=== PATIENT | female | born 1940 | race African-American/Black ===

== ENCOUNTER 2017-05-19 14:11 | Outpatient (RCR) | payer OTHER | END 2017-05-20 | disposition home or self-care (01) | LOC: EDBD → PTY 14:11 → MERGE 14:11 | PROVIDERS: ATTEND Internal Medicine | DX: M54.41 Lumbago with sciatica, right side (principal); M54.42 Lumbago with sciatica, left side; G89.29 Other chronic pain | CPT/HCPCS: 97110; 97140; 97162; G0283 ==

== ENCOUNTER 2017-06-09 13:00 | Outpatient (RCR) | payer OTHER | END 2017-06-20 | disposition home or self-care (01) | LOC: EDBD → MERGE 13:00 → PTY 13:00 | PROVIDERS: ATTEND Internal Medicine | DX: M54.41 Lumbago with sciatica, right side (principal); M54.42 Lumbago with sciatica, left side; G89.29 Other chronic pain | CPT/HCPCS: 97110; 97140; G0283 ==

== ENCOUNTER 2017-06-29 14:30 | Outpatient (RCR) | payer OTHER | END 2017-07-21 | disposition home or self-care (01) | LOC: EDBD → PTY 14:30 | PROVIDERS: ATTEND Internal Medicine | DX: M54.41 Lumbago with sciatica, right side (principal); M54.42 Lumbago with sciatica, left side; G89.29 Other chronic pain | CPT/HCPCS: 97110; 97140; G0283 ==

== ENCOUNTER 2017-09-16 10:30 | Outpatient (RCR) | payer OTHER | END 2017-09-18 | disposition home or self-care (01) | LOC: PTY 10:30 | PROVIDERS: ATTEND Internal Medicine | DX: M76.61 Achilles tendinitis, right leg (principal); M25.571 Pain in right ankle and joints of right foot ==

== ENCOUNTER 2017-09-21 12:30 | Outpatient (RCR) | payer OTHER | END 2017-10-18 | disposition home or self-care (01) | LOC: PTY 12:30 | PROVIDERS: ATTEND Internal Medicine | DX: M54.40 Lumbago with sciatica, unspecified side (principal); G89.29 Other chronic pain; M76.61 Achilles tendinitis, right leg; M25.571 Pain in right ankle and joints of right foot | CPT/HCPCS: 97110; 97140; 97161; G0283 ==

== ENCOUNTER 2017-09-24 14:57 | Outpatient (RCR) | payer OTHER | END 2017-10-18 | disposition home or self-care (01) | LOC: PTY 14:57 | PROVIDERS: ATTEND Internal Medicine | DX: M76.61 Achilles tendinitis, right leg (principal); M25.571 Pain in right ankle and joints of right foot ==

== ENCOUNTER 2017-10-19 12:50 | Outpatient (RCR) | payer OTHER | END 2017-11-18 | disposition home or self-care (01) | LOC: PTY 12:50 | PROVIDERS: ATTEND Internal Medicine | DX: M76.61 Achilles tendinitis, right leg (principal); M25.571 Pain in right ankle and joints of right foot ==

== ENCOUNTER 2017-10-22 12:50 | Outpatient (RCR) | payer OTHER | END 2017-11-18 | disposition home or self-care (01) | LOC: PTY 12:50 | PROVIDERS: ATTEND Internal Medicine | DX: M54.40 Lumbago with sciatica, unspecified side (principal); G89.29 Other chronic pain; M76.61 Achilles tendinitis, right leg; M25.571 Pain in right ankle and joints of right foot ==